=== PATIENT | female | born 1970 | race Hispanic/Latino ===

== ENCOUNTER 2018-09-23 11:38 | Emergency (ER) | payer MEDICAID, OTHER ==
[2018-09-23] MEDS ORDERED: IPRATROPIUM/ALBUTEROL SULFATE 3 ML SOLUTION IH ONE (11:45)
[2018-09-23] MEDS ORDERED: DEXAMETHASONE SOD PHOSPHATE 10MG/ML 1ML VIAL ONE (12:10)
[2018-09-23] MEDS ORDERED: CEFTRIAXONE SODIUM 1 GM ONE (12:10)
[2018-09-23] MEDS ORDERED: SODIUM CHLORIDE 0.9% 50 ML IV ONE (12:11)
[2018-09-23 12:28] LABS: BASOPHILS % (AUTO) 0.8 % (0.0-5.0); EOSINOPHILS % (AUTO) 2.7 % (0.0-8.0); HEMATOCRIT 41.1 % (36-48); LYMPHOCYTES % (AUTO) 23.1 % (21.0-51.0); MEAN CORPUSCULAR HEMOGLOBIN 30.5 pg (27.0-33.0); MEAN CORPUSCULAR HGB CONC 34.3 g/dL (32.0-36.0); MONOCYTES % (AUTO) 5.3 % (3.0-13.0); NEUTROPHILS % (AUTO) 68.1 % (40.0-77.0); NUCLEATED RED BLOOD CELLS 0.1 % (0.0-0.19); PLATELET COUNT (AUTO) 143 K/uL (130-400); RED BLOOD CELL COUNT(AUTO) 4.62 MIL/uL (4.00-5.50); RED CELL DISTRIBUTION WIDTH 12.8 % (11.0-15.5); WHITE BLOOD COUNT (AUTO) 5.6 K/uL (4.8-10.8)
[2018-09-23 12:36] LABS: CREATININE 1.1 mg/dL (0.5-1.5); POTASSIUM 4.1 mmol/L (3.5-5.1)
[2018-09-23 12:40] LABS: ALBUMIN 3.1 g/dL (3.5-5.0); BILIRUBIN,TOTAL 0.4 mg/dL (0.2-1.0); TOTAL PROTEIN, SERUM 6.5 g/dL (6.0-8.3)
[2018-09-23 13:16] LABS: B-TYPE NATRIURETIC PEPTIDE 26 pg/mL (0-100)
== END 2018-09-23 15:28 | disposition home or self-care (01) ==
LOC: EDH 11:38
DX: J20.9 Acute bronchitis, unspecified (principal); Z90.710 Acquired absence of both cervix and uterus; Z90.49 Acquired absence of other specified parts of digestive tract
CPT/HCPCS: 36415; 71045; 80053; 82550; 83880; 84484; 85025; 87804 ×2; 93005; 94640; 96374; 96375; 99284; J0696; J1100